=== PATIENT | male | born 1950 | race Caucasian/White ===

== ENCOUNTER → 2016-10-03 | Outpatient (CLI) | payer OTHER ==
[~2016-10-03] MED LIST: ASPIRIN ADULT L81 M2 PO; ATORVASTATIN CA80 M1 PO; CLOPIDOGREL75 MG PO; PRINIVIL10 MG PO
[2016-10-03 07:52] LABS: HEMATOCRIT 39.4 % (42.0-52.0); HEMOGLOBIN 13.5 g/dl (14.0-18.0); MEAN CELL VOLUME 93.4 fl (80.0-94.0); MEAN CORPUSCULAR HGB CONC 34.3 g/dl (33.0-37.0); MEAN PLATELET VOLUME 9.5 fl (9.6-12.3); RED BLOOD COUNT 4.22 10*6/uL (4.50-5.90); RED CELL DISTRI WIDTH 14.3 % (0-14.5); WHITE BLOOD COUNT 6.5 10*3/uL (4.8-10.8)
[2016-10-03 08:21] LABS: ALBUMIN 3.9 gm/dl (3.1-4.5); BILIRUBIN, TOTAL 0.4 mg/dl (0.2-1.0); BUN 7 mg/dl (7-24); CARBON DIOXIDE 30 mmol/L (21-32); CHLORIDE 100 mmol/L (98-107); CHOLESTEROL 113 mg/dL (<200); EST GLOM FILT AFRICAN AMERICAN > 60 ml/min; GLUCOSE 95 mg/dL (65-99); POTASSIUM 4.4 mmol/L (3.5-5.1); SGOT/AST 16 IU/L (3-35); SGPT/ALT 21 U/L (12-78); SODIUM 134 mmol/L (136-145); TOTAL PROTEIN 7.4 gm/dL (6.4-8.2); TRIGLYCERIDES 48 mg/dl (<150); VLDL CHOLESTEROL 10 mg/dL (6-40)
[2016-10-03 08:22] LABS: ALKALINE PHOSPHATASE 137 U/L (45-117); CPK 78 U/L (39-308); HDL CHOLESTEROL 76 mg/dl (40-60); LDL CHOLESTEROL 27 mg/dL (9-159)
== END | disposition home or self-care (01) ==
LOC: LAB 07:08
PROVIDERS: Family Medicine
DX: I10 Essential (primary) hypertension (principal); E78.00 Pure hypercholesterolemia, unspecified; E74.00 Glycogen storage disease, unspecified; F41.1 Generalized anxiety disorder; I63.9 Cerebral infarction, unspecified; R05 Cough

== ENCOUNTER 2019-10-22 16:40 | Inpatient (IN) | payer MEDICARE ==
[~2019-10-22] VITALS: Ht 175.3 cm; Wt 56.8 kg
[2019-10-22 16:52] VITALS: BP 183/91
[2019-10-22 17:34] LABS: BASO # 0.1 10*3/uL (0.0-0.1); BASO % 0.6 % (0.0-1.0); EOS # 0.3 10*3/uL (0.0-0.4); EOS % 2.9 % (1.0-4.0); HEMATOCRIT 40.8 % (42.0-52.0); LYMPH # 1.2 10*3/uL (1.3-4.4); MEAN CELL VOLUME 96.5 fl (80.0-94.0); MEAN CORPUSCULAR HGB 32.6 pg (27.0-31.0); MEAN CORPUSCULAR HGB CONC 33.8 g/dl (33.0-37.0); MEAN PLATELET VOLUME 9.1 fl (9.6-12.3); MONO # 0.7 10*3/uL (0.1-1.0); MONO % 6.8 % (3.0-9.0); NEUT # 7.9 10*3/uL (2.3-7.9); NEUT % 77.4 % (47.0-73.0); PLATELET COUNT AUTOMATED 318 10*3/uL (130-400); RED BLOOD COUNT 4.23 10*6/uL (4.50-5.90); RED CELL DISTRI WIDTH 13.4 % (0-14.5); WHITE BLOOD COUNT 10.3 10*3/uL (4.8-10.8)
[2019-10-22 17:39] LABS: ABG BASE EXCESS -0.4 mmol/L (-2.0-2.0); ARTERIAL BLOOD GAS PH 7.425 (7.35-7.45)
[2019-10-22 17:45] LABS: ACT PARTIAL THROMBO TIME 29.7 SECONDS (20.0-32.1)
[2019-10-22 17:51] LABS: ALBUMIN 3.4 gm/dl (3.1-4.5); BUN 13 mg/dl (7-24); CHLORIDE 102 mmol/L (98-107); CREATININE 0.77 mg/dL (0.70-1.30); LIPASE 73 U/L (73-393); POTASSIUM 4.1 mmol/L (3.5-5.1); SGPT/ALT 20 U/L (12-78); SODIUM 133 mmol/L (136-145); TOTAL PROTEIN 6.9 gm/dL (6.4-8.2)
[2019-10-22 17:55] LABS: ALKALINE PHOSPHATASE 124 U/L (45-117); SGOT/AST 13 IU/L (3-35)
[2019-10-22 17:57] LABS: TROPONIN I < 0.015 ng/ml (<0.045)
[2019-10-22 18:51] VITALS: BP 164/80
--- NOTE | 2019-10-22 19:04 | NUR ---
THE PATIENT IS AWAKE ALERT AND VOICES NO COMPLAINTS AT THIS TIME. I DID EXPLAIN TO HIM HIS FAMILY HAS CALLED. I EXPLAINED TO THE PATIENT THEY WILL BE CALLING BACK AND I CAN PUT THE CALL INTO HIM. ISAIAS MILLER RN.
[2019-10-22 19:05] LABS: BILIRUBIN NEGATIVE (NEGATIVE); BLOOD NEGATIVE (NEGATIVE); CLARITY SL CLOUDY (CLEAR); COLOR YELLOW (YELLOW); GLUCOSE NEGATIVE (NEGATIVE); KETONE NEGATIVE (NEGATIVE); LEUKO ESTERASE NEGATIVE (NEGATIVE); MUCOUS 1+; NITRITE NEGATIVE (NEGATIVE); PH 6.5 (5.0-9.0); UROBILINOGEN 0.2 E.U./dl (0.2-1.0)
[2019-10-22 19:30] VITALS: BP 160/91
[2019-10-22 22:00] VITALS: BP 178/90
--- NOTE | 2019-10-22 22:00 | NUR ---
A 69, admitted to , under the services of JUAREZ Carney DO with a diagnosis of ALTERED MENTAL STATUS. Chief complaint is CHANGE IN MENTAL STATUS. Patient arrived via wheel chair from ER. Monitor applied. Initial assessment completed. Vital signs taken and recorded. JUAREZ CARNEY DO notified of admission to the unit. Orders received. See assessment for past medical history, medications and allergies. Patient and/or family oriented to unit. [address] visitation policy reviewed. Clothing/patient valuable form completed. PATIENT STATED NAME, PLACE, AND DATE. NO SIGNS OF CONFUSION AT THIS TIME. PATIENT IS UNSTEADY ON FEET. ORIENTED TO ROOM AND CALL LIGHT. BED ALARMED EXPLAINED AND TURNED ON. ALL QUESTIONS ANSWERED. NO COMPLAINTS AT THIS TIME. WILL MONITOR. JUAN A DENIS
[2019-10-22] MEDS ORDERED: LOSARTAN POTASS50 M1 PO (22:16)
[2019-10-22] MEDS ORDERED: SERTRALINE HYDR50 MG PO (22:20)
[2019-10-22] MEDS ORDERED: B COMPLEX1 EACH PO (22:21)
[2019-10-22] MEDS ORDERED: B12 ACTIVE1000 MCG PO (22:22)
--- NOTE | 2019-10-22 22:30 | NUR ---
TALKED WITH THE PATIENTS DAUGHTER KAZ AND GAVE HER AN UPDATE ON [facility] PAATIENTS ADMISSION AND CONDITION PER THE PATIETNS REQUEST. ISAIAS MILLER RN.
--- NOTE | 2019-10-22 22:45 | NUR ---
NOTIFIED [facility] OF CONSULT
--- NOTE | 2019-10-22 23:29 | NUR ---
PATIENT REFUSED LIBRIUM. HE STATED HE DRINKS 6 BEERS A DAY. PATIENT STATED HE STOPPED DRINKING ALCOHOL IN THE PAST AND THEN STARTED AGAIN BECAUSE HE USED TO [place]. EXPLAINED REASON FOR LIBRIUM. PATIENT STILL REFUSED. I WENT OVER HIS PRN MEDICATION OPTIONS WITH HIM. PATIENT IS REQUESTING ONLY NICOTINE PATCH AT THIS TIME.
--- NOTE | 2019-10-22 23:30 | NUR ---
SPOKE WITH DR GRAVES REGARDING HIGH BLOOD PRESSURES. HE STATED HE WOULD PUT IN A ONE TIME DOSE OF PATIENT'S COZAR
[2019-10-23] VITALS (11 sets, daily range): BP systolic 70–190; BP diastolic 50–90
[2019-10-23 00:04] LABS: URINE AMPHETAMINES < 1000 (1000ng/ml); URINE BARBITURATES < 200 (200ng/ml); URINE BENZODIAZEPINES < 200 (200ng/ml); URINE CANNABINOIDS (THC) < 50 (50ng/ml); URINE COCAINE < 300 (300ng/ml); URINE METHADONE < 300 (300ng/ml); URINE OPIATES < 300 (300ng/ml)
[2019-10-23 00:11] LABS: URINE PHENCYCLIDINE < 25 (25ng/ml)
--- NOTE | 2019-10-23 01:37 | NUR ---
PATIENTS BLOOD PRESSURE IS STILL HIGH AT 182/90 WITH DOSE OF COZAR. PATIENT CURRENTLY STATED HE FEELS ITCHY "ALL OVER". HE HAS A NICOTINE PATCH ON. NOTIFIED DR GRAVES. HE STATED TO TAKE OFF THE NICOTINE PATCH TO SEE IF THAT HELPS, THAT HE WOULD ORDER SOMETHING FOR THE ITCHING AND ALSO SOMETHING FOR THE CONTINUED HIGH BLOOD PRESSURES. WILL CARRY OUT DOCTORS ORDERS.
--- NOTE | 2019-10-23 01:44 | NUR ---
PATIENT STATED HE DOES NOT WANT ME TO TAKE OFF HIS NICOTINE PATCH. HE STATED THAT HE ITCHES "ALL THE TIME" AND THAT HE HAS AN APPOINTMENT IN [place] ON THE TO SEE A CYBERATHLETE. PATIENT STATED HE USES A SPECIAL DETERGENT AT HOME AND THAT HE HAS BEEN ITCHY FOR MONTHS. HE HAS AGREED TO TAKE BENADRYL TO SEE IF IT HELPS.
--- NOTE | 2019-10-23 02:01 | NUR ---
BENADRYL GIVEN FOR COMPAINTS OF ITCHING. APRESOLINE 10MG GIVEN FOR HIGH BLOOD PRESSURE 182/90. WILL ASSESS EFFECTIVENESS OF MEDICATIONS.
--- NOTE | 2019-10-23 05:05 | NUR ---
APRESOLINE NOT EFFECTIVE. PATIENT'S BLOOD PRESSURE 188/88. NOTIFIED DR GRAVES. HE STATED HE WOULD LOOK AND SEE WHAT ELSE TO DO FOR THE PATIENT.
--- NOTE | 2019-10-23 05:10 | NUR ---
TYLENOL GIVEN PER PATIENT REQUEST FOR COMPLAINTS OF HEADACHE RATED 6/10. WILL ASSESS EFFECTIVENESS.
--- NOTE | 2019-10-23 05:53 | NUR ---
LABETOLOL 10MG IV ORDERED BY DR GRAVES AND ADMINISTERED TO PATIENT.
[2019-10-23 06:28] LABS: BASO # 0.1 10*3/uL (0.0-0.1); BASO % 0.8 % (0.0-1.0); EOS # 0.5 10*3/uL (0.0-0.4); EOS % 7.1 % (1.0-4.0); LYMPH # 1.7 10*3/uL (1.3-4.4); LYMPH % 23.3 % (27.0-41.0); MEAN CELL VOLUME 94.6 fl (80.0-94.0); MEAN CORPUSCULAR HGB 32.2 pg (27.0-31.0); MEAN PLATELET VOLUME 9.3 fl (9.6-12.3); MONO # 0.7 10*3/uL (0.1-1.0); MONO % 10.2 % (3.0-9.0); NEUT # 4.2 10*3/uL (2.3-7.9); NEUT % 58.3 % (47.0-73.0); PLATELET COUNT AUTOMATED 322 10*3/uL (130-400); RED BLOOD COUNT 4.23 10*6/uL (4.50-5.90); RED CELL DISTRI WIDTH 13.2 % (0-14.5); WHITE BLOOD COUNT 7.2 10*3/uL (4.8-10.8)
[2019-10-23 06:30] LABS: BUN 10 mg/dl (7-24); CHLORIDE 102 mmol/L (98-107); CHOLESTEROL 170 mg/dL (<200); CREATININE 0.59 mg/dL (0.70-1.30); HDL CHOLESTEROL 51 mg/dl (40-60); LDL CHOLESTEROL 101 mg/dL (9-159); POTASSIUM 3.6 mmol/L (3.5-5.1); SODIUM 132 mmol/L (136-145); TRIGLYCERIDES 92 mg/dl (<150); VLDL CHOLESTEROL 18 mg/dL (6-40)
--- NOTE | 2019-10-23 06:35 | NUR ---
WENT IN TO PATIENT'S ROOM TO RECHECK BLOOD PRESSURE AFTER LABETOLOL GIVEN. PATIENT'S BLOOD PRESSURE WAS 152/77 AND HEART RATE WAS 74 PER CONTINUOUS PROCESS TANNER ROTARY DRUM. HE STATED HE HAD TO GO TO THE BATHROOM. I ASSISTED HIM TO STAND NEAR THE SIDE OF HIS BED AND HANDED HIM HIS URINAL. HE THEN STATED HE FELT LIKE HE HAD TO HAVE A BOWEL MOVEMENT AND STARTED WALKING TO THE BATHROOM. I ASSISTED THE PATIENT INTO THE BATHROOM AND TOLD HIM I WAS GOING TO STAY NEARBY SINCE HE IS UNSTEADY WHEN WALKING. PATIENT THEN STARTED TO SLOUCH STANDING AND I ASKED HIM IF HE WAS OKAY. HE DID NOT ANSWER ME AND THEN LEANED UP AGAINST THE WALL. I ASKED THE PATIENT IF HE WAS OKAY AND SAID HIS NAME. THE PATIENT DID NOT RESPOND. HIS EYES THEN ROLLED UP AND HE STARTED TO GO DOWN. I ASSISTED THE PATIENT TO THE FLOOR AND YELLED FOR HELP. THE ICU NURSES CAME OUT TO HELP. PATIENT'S BLOOD PRESSURE WAS THEN 75/50 AT 0638 WITH A PULSE OF 55-60. A RAPID RESPONSE WAS CALLED. PATIENT WAS WEAK AND NEEDED ASSISTANCE INTO A WHEELCHAIR TO GET BACK INTO BED. ONCE IN BED LAYING DOWN THE PATIENT'S BLOOD PRESSURE AT 0645 WAS 124/65 WITH A PULSE OF 66. PATIENT STATED HE FELT "FINE". DR YOON ORDERED THE PATIENT TO HAVE A ONE TIME BAG OF NORMAL SALINE 1000ML GOING AT 100 ML/HR. BLOOD SUGAR WAS 134. PATIENT RESPONSIVE AND ALERT AND ORIENTED X 3. ANSWERING QUESTIONS APPROPRIATELY. FLUIDS RUNNING. CALL LIGHT WITHIN REACH. VITAL SIGNS STABLE. NO FURTHER COMPLAINTS. WILL CONTINUE TO MONITOR.
[2019-10-23 06:38] LABS: FREE T4 1.16 ng/dl (0.76-1.46)
--- NOTE | 2019-10-23 06:45 | NUR ---
RESPONDED TO RAPID RESPONSE WITH RT ALEX JENKINS. RAPID RESPONSE CLEARED AND EKG SOMPLETED
--- NOTE | 2019-10-23 07:06 | NUR ---
PATIENT RESTING IN BED QUIETLY. VITAL SIGNS STABLE. PATIENT STATED HE FELT FINE. BED CHANGED. IV FLUIDS RUNNING. NO COMPLAINTS AT THIS TIME. CALL LIGHT WITHIN REACH.
--- NOTE | 2019-10-23 07:30 | NUR ---
PT RESTING IN BED. VOICES NO CONCERNS AT THIS TIME. RESPS EASY AND NON LABORED. NO S/S OF DISTRESS NOTED. PT A LITTLE CONFUSED THIS MORNING-CORRECTS WITH RE-ORIENTATION. VSS. WHITE BOARD UPDATED. CALL LIGHT WITHIN REACH. BED ALARM ON.
--- NOTE | 2019-10-23 09:30 | NUR ---
Rough Rice Tender in to talk to patient. Patient states lives at home with friend. There are no steps in the home. Physician: jeffry meza Pharmacy: [facility] health services: none Patient's level of ADLs: INDEPENDENT Patient has working utilities: all working DME: none Follow-up physician's appointment after d/c: will be made by hospitalist nurse director upon discharge Does patient want to access PORTAL?: no Discharge plan discussed with patient, he states he lives at home with friend, he is independent in adls and ambulation, he states he will return home when medically stable and denies any home needs. BRADLEY RAMEY
--- NOTE | 2019-10-23 09:57 | NUR ---
ORTHOS COMPLETE. LAYING 169/73, SITTING 161/70, STANDING 160/74
--- NOTE | 2019-10-23 14:00 | NUR ---
PTS FAMILY DROPPED OFF BELONGINGS IN ER. RETRIEVED AND GAVE TO PT AT THIS TIME.
--- NOTE | 2019-10-23 18:29 | NUR ---
Patient resting quietly with no c/o discomfort. Respirations easy and regular. Vital signs stable. No overt distress. HISSOM,ELO
--- NOTE | 2019-10-23 21:04 | NUR ---
PATIENT'S DAUGHTER CALLED TO GET AN UPDATE. PASSWORD GIVEN TO ME. UPDATED HER AND ANSWERED ALL QUESTIONS. SHE STATED HER BROTHER WAS TO BE THE FIRST TO BE NOTIFIED IN AN EMERGENCY AND HIS NUMBER IS [phone], NAME IS MALVIN COOPER. HER NUMBER IS ON CHART WELL AND PATIENT'S LIVE IN GIRLFRIEND'S NUMBER IS ON CHART. NO FURTHER QUESTIONS.
--- NOTE | 2019-10-23 21:41 | NUR ---
PATIENT RESTING IN BED. HE IS A LITTLE BIT DROWSY BUT RESPONDS APPROPRIATELY AND ANSWERS ALL QUESTIONS. SPEECH NOT SLURRED. PATIENT STATED HE SLEPT GOOD TODAY AND WAS WARM. WILL CONTINUE TO MONITOR.
--- NOTE | 2019-10-23 21:54 | NUR ---
PATIENT'S MOM CALLED IN TO CHECK ON PATIENT. SHE STATED SHE HAD CALLED IN TO THE PATIENT'S ROOM BUT HE WAS QUIET ON THE PHONE AND SHE COULD NOT UNDERSTAND HIM WELL ENOUGH. I UPDATED HER ON THE PATIENT'S CONDITION AND LET HER KNOW HE WAS A LITTLE DROWSY BUT DOING WELL WITH GOOD STABLE VITAL SIGNS. NO FURTHER QUESTIONS.
[2019-10-24] VITALS: BP 122/79
[2019-10-24 01:52] VITALS: BP 126/68
--- NOTE | 2019-10-24 04:40 | NUR ---
24 HR chart check completed.
[2019-10-24 06:44] LABS: BUN 11 mg/dl (7-24); CHLORIDE 105 mmol/L (98-107); POTASSIUM 3.3 mmol/L (3.5-5.1); SODIUM 136 mmol/L (136-145)
[2019-10-24 06:45] LABS: CREATININE 0.68 mg/dL (0.70-1.30)
--- NOTE | 2019-10-24 07:30 | NUR ---
PT RESTING IN BED. VOICES NO CONCERNS AT THIS TIME. RESPS EASY AND NON LABORED. NO S/S OF DISTRESS NOTED. VSS. WHITE BOARD UPDATED. CALL LIGHT WITHIN REACH. BED ALARM ON.
[2019-10-24 08:00] VITALS: BP 144/80; BP 144/82
--- NOTE | 2019-10-24 08:17 | NUR ---
PHYSICAL THERAPY Screen received pt admitted from home with metabolic encephalopathy and to rule out CVA. 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 Pt may benefit from PT pending cognitive/medical status if below baseline level of function thank you. Zuri Edgar PT
--- NOTE | 2019-10-24 08:57 | NUR ---
SPOKE WITH DAUGHTER KAZ. SHE REQUESTED THAT THE DOCTOR CALL HER. SOURAV MARTINEZ CURRENTLY SPEAKING WITH DAUGHTER UPDATING HER. PATIENT IS RESTING QUIETLY IN BED. ALL MORNING MEDICATIONS TAKEN ALONG WITH POTASSIUM SUPPLEMENTATION. NO PROBLEM WITH SWALLOWING PILLS. PATIENT IS ANSWERING ALL QUESTIONS APPROPRIATELY BUT SEEMS TO HAVE A LITTLE BIT OF CONFUSION AT TIMES. CALL LIGHT WITHIN REACH. BED ALARM ON.
--- NOTE | 2019-10-24 09:00 | NUR ---
case managment visits with patient, he states he will return home when medically stable and denies any home needs
--- NOTE | 2019-10-24 09:18 | NUR ---
WEST MARTINEZ CALLED FAMILY TO UPDATE THEM ON PLAN OF CARE
--- NOTE | 2019-10-24 10:24 | NUR ---
Shift chart check completed.
[2019-10-24 12:00] VITALS: BP 137/67
--- NOTE | 2019-10-24 13:30 | NUR ---
Occupational Therapy evaluation completed on four with full evaluation to follow. Recommend occupational therapy per plan of care and SNF upon discharge. If refused, home with SN, OT,and PT with 08/01 supervision assist. Thank you for this referral. Alexia Littlejohn OTR/L
--- NOTE | 2019-10-24 14:47 | NUR ---
Physical Therapy Physical Therapy evaluation completed on the fourth floor with full evaluation to follow. Upon entering room pt lyingin bed had spilled his coffee all over him/bed. Talking on the phone, but had phone flipped so not speaking into actual phone piece asked pt if he realized speaking into phone the wrong way and said "oh really". Per notes pt does have orders for pysch consult. Please see full eval, recommend physical therapy per plan of care and SNF upon discharge. Thank you for this referral. Zuri Edgar PT
[2019-10-24 16:00] VITALS: BP 123/70
--- NOTE | 2019-10-24 16:15 | NUR ---
PT FOUND SITTING IN HALLWAY IN RECLINER USING FEET TO MOVE BACKWARDS. STATING HE HAS TO GET UP TO THE SECOND FLOOR TO GO WORK. RE-ORIENTED PATIENT AND ASSISTED HIM BACK TO HIS ROOM. STATES HE STILL WANTS TO SIT IN CHAIR AND HAVE A CUP OF COFFEE. WILL CONTINUE TO MONITOR. CALL LIGHT WITHIN REACH. BODY ALARM INTACT
--- NOTE | 2019-10-24 16:22 | NUR ---
PATIENTS FAMILY UPDATED ON PLAN OF CARE. QUESTIONS ANSWERED.
--- NOTE | 2019-10-24 16:36 | NUR ---
PT MOVED TO ROOM 409 TO BE CLOSER TO NURSES STATION
--- NOTE | 2019-10-24 19:21 | NUR ---
SITTING UP IN CHAIR WITH BODY ALARM ON. DROWSY BUT DID AWAKEND EASILY TO VOICE. PT. PLEASANT AT THIS TIME.
[2019-10-24 21:56] VITALS: BP 141/68
[2019-10-25] VITALS (8 sets, daily range): BP systolic 105–170; BP diastolic 62–86
--- NOTE | 2019-10-25 00:01 | NUR ---
24 HR chart check completed.
--- NOTE | 2019-10-25 02:58 | NUR ---
SLEEPING RESP. EASY AND REG. NO DISTRESS NOTED.
--- NOTE | 2019-10-25 07:55 | NUR ---
MORNING ASSESSMENT COMPLETE. NO SIGNS OF DISTRESS. MANUAL BP IS 168/78. APRESOLINE 5MG IV GIVEN FOR SYSTOLIC GREATER THAN 160.
--- NOTE | 2019-10-25 09:08 | NUR ---
BP 154/70. APRESOLINE EFFECTIVE.
--- NOTE | 2019-10-25 13:11 | NUR ---
APRESOLINE 5MG IV GIVEN FOR A SYSTOLIC BP OF 170.
--- NOTE | 2019-10-25 13:41 | NUR ---
DAUGHTER CALLED WANTING ME TO TAKE PATIENT OFF OF LIBRIUM. I EXPLAINNED TO HIS DAUGHTER THAT THE DECISION WOULD BE MADE BY THE PATIENT AND HIS PHYSICIAN BUT THAT I WOULD TELL THE PHYSICIAN OF HER CONCERN.
--- NOTE | 2019-10-25 13:46 | NUR ---
SPOKE WITH DR GROSSMAN AND TOLD HER OF DAUGHTERS CONCERNS ABOUT THE LIBRIUM.
--- NOTE | 2019-10-25 14:50 | NUR ---
BP IS 130/62 MANUAL. APRESOLINE EFFECTIVE. ROUTINE ZESTRIL GIVEN AT THIS TIME.
--- NOTE | 2019-10-25 17:30 | NUR ---
PT RESTING IN BED. EYES CLOSED. WILL MONITOR
--- NOTE | 2019-10-25 19:56 | NUR ---
ASSESSED PATIENT. PATIENT ALERT AND COOPERATIVE. ON PHONE WITH FAMILY MEMBER. NO EEDS AT THIS TIME. CALL LIGHT WITHIN REACH, WILL MONITOR
--- NOTE | 2019-10-25 23:29 | NUR ---
PATIENT SLEEPING, NO DISTRESS NOTED. BED ALARM INTACT. CALL LIGHT WITHIN REACH, WILL MONITOR
[2019-10-26] VITALS: BP 115/66
--- NOTE | 2019-10-26 01:49 | NUR ---
24 HR chart check completed.
--- NOTE | 2019-10-26 02:00 | NUR ---
PATIENT WANTED TO GET UP AND STRETCH LEGS. UNSTEADY ON FEET. PATIENT NOW BACK IN BED, BED ALARM INTACT. CALL LIGHT WITHIN REACH, WILL MONITOR
[2019-10-26 06:20] LABS: BASO # 0.1 10*3/uL (0.0-0.1); BASO % 0.8 % (0.0-1.0); EOS # 0.5 10*3/uL (0.0-0.4); EOS % 6.3 % (1.0-4.0); HEMATOCRIT 37.5 % (42.0-52.0); LYMPH # 1.1 10*3/uL (1.3-4.4); LYMPH % 14.5 % (27.0-41.0); MEAN CELL VOLUME 95.9 fl (80.0-94.0); MEAN CORPUSCULAR HGB 32.5 pg (27.0-31.0); MEAN CORPUSCULAR HGB CONC 33.9 g/dl (33.0-37.0); MEAN PLATELET VOLUME 9.5 fl (9.6-12.3); MONO # 0.9 10*3/uL (0.1-1.0); MONO % 11.6 % (3.0-9.0); NEUT # 5.1 10*3/uL (2.3-7.9); NEUT % 66.4 % (47.0-73.0); PLATELET COUNT AUTOMATED 297 10*3/uL (130-400); RED BLOOD COUNT 3.91 10*6/uL (4.50-5.90); RED CELL DISTRI WIDTH 13.9 % (0-14.5); WHITE BLOOD COUNT 7.7 10*3/uL (4.8-10.8)
[2019-10-26 06:43] LABS: CREATININE 0.71 mg/dL (0.70-1.30)
[2019-10-26 08:00] VITALS: BP 112/70
--- NOTE | 2019-10-26 08:26 | NUR ---
PT RESTING IN BED/ NO DISTRESS NOTED. WILL MONITOR
[2019-10-26] MEDS ORDERED: VITAMIN D350 MC2 PO (10:38)
[2019-10-26] MEDS ORDERED: NORVASC5 MG PO (10:38)
[2019-10-26 12:00] VITALS: BP 138/54
--- NOTE | 2019-10-26 12:30 | NUR ---
SPOKE WITH PT AMBREEN PARIKH AND DC ISTRUCTIONS GIVEN
--- NOTE | 2019-10-26 13:30 | NUR ---
Discharge instructions reviewed with patient/family. Patient receptive and verbalizes understanding. Follow-up care arranged. Written instructions given to patient/family. NACHO ZIMMERMAN
== END 2019-10-26 13:30 | disposition home or self-care (01) | DRG 304 ==
LOC: ED 16:40 → 4E 19:48 → EDHOLD 19:48 → 4E 21:15
PROVIDERS: Emergency Medicine; Internal Medicine; ADMIT Internal Medicine
DX: I16.1 Hypertensive emergency (principal); G93.41 Metabolic encephalopathy; E87.1 Hypo-osmolality and hyponatremia; I95.9 Hypotension, unspecified; R55 Syncope and collapse; D53.9 Nutritional anemia, unspecified; I10 Essential (primary) hypertension; J43.9 Emphysema, unspecified; F41.9 Anxiety disorder, unspecified; G47.00 Insomnia, unspecified; F32.9 Major depressive disorder, single episode, unspecified; I34.0 Nonrheumatic mitral (valve) insufficiency; R73.9 Hyperglycemia, unspecified; E83.41 Hypermagnesemia; R74.8 Abnormal levels of other serum enzymes; F17.210 Nicotine dependence, cigarettes, uncomplicated; Z71.6 Tobacco abuse counseling; Z86.73 Personal history of transient ischemic attack (TIA), and cerebral infarction without residual deficits; Z82.3 Family history of stroke; Z80.42 Family history of malignant neoplasm of prostate; Z82.49 Family history of ischemic heart disease and other diseases of the circulatory system; Z79.899 Other long term (current) drug therapy; Z79.82 Long term (current) use of aspirin; Z79.02 Long term (current) use of antithrombotics/antiplatelets

== ENCOUNTER → 2021-05-24 | Outpatient (CLI) | payer OTHER ==
[~2021-05-24] MED LIST changes: +B COMPLEX1 EACH PO; +B12 ACTIVE1000 MCG PO; +LOSARTAN POTASS50 M1 PO; +NORVASC5 MG PO; +SERTRALINE HYDR50 MG PO; +VITAMIN D350 MC2 PO
[2021-05-24 10:02] LABS: BUN 11 mg/dl (7-24); CREATININE 0.85 mg/dL (0.70-1.30)
== END | disposition home or self-care (01) ==
LOC: LAB 09:30 → CT 10:00
PROVIDERS: ATTEND Internal Medicine Critical Care Medicine
DX: Z01.812 Encounter for preprocedural laboratory examination (principal); J43.9 Emphysema, unspecified; J40 Bronchitis, not specified as acute or chronic; J45.50 Severe persistent asthma, uncomplicated; R22.2 Localized swelling, mass and lump, trunk; Z68.1 Body mass index [BMI] 19.9 or less, adult; Z87.891 Personal history of nicotine dependence

== ENCOUNTER → 2021-12-09 | Outpatient (CLI) | payer OTHER | END | disposition home or self-care (01) | LOC: CT 11:45 | PROVIDERS: ATTEND Internal Medicine Critical Care Medicine | DX: J43.9 Emphysema, unspecified (principal); J47.9 Bronchiectasis, uncomplicated; I25.10 Atherosclerotic heart disease of native coronary artery without angina pectoris; J45.50 Severe persistent asthma, uncomplicated; J92.9 Pleural plaque without asbestos; Z68.1 Body mass index [BMI] 19.9 or less, adult; R91.8 Other nonspecific abnormal finding of lung field ==

== ENCOUNTER → 2023-03-19 | Outpatient (CLI) | payer OTHER | END | disposition home or self-care (01) | LOC: CT 13:00 | PROVIDERS: ATTEND Family Medicine | DX: J43.9 Emphysema, unspecified (principal); R91.8 Other nonspecific abnormal finding of lung field; F17.210 Nicotine dependence, cigarettes, uncomplicated ==

== ENCOUNTER → 2023-07-13 | Outpatient (CLI) | payer OTHER ==
[2023-07-13 13:09] LABS: HEMATOCRIT 40.7 % (42.0-52.0); MEAN CORPUSCULAR HGB 31.6 pg (27.0-31.0); MEAN CORPUSCULAR HGB CONC 31.9 g/dl (33.0-37.0); MEAN PLATELET VOLUME 9.4 fl (9.6-12.3); RED BLOOD COUNT 4.11 10*6/uL (4.50-5.90); RED CELL DISTRI WIDTH 13.3 % (0-14.5); WHITE BLOOD COUNT 10.2 10*3/uL (4.8-10.8)
[2023-07-13 13:33] LABS: ALKALINE PHOSPHATASE 89 U/L (46-116); BUN 20 mg/dl (9-23); CHLORIDE 101 mmol/L (98-107); LIPASE 33 U/L (12-53); POTASSIUM 3.6 mmol/L (3.4-5.1); SGPT/ALT 17 U/L (5-49); TOTAL PROTEIN 6.7 gm/dL (6.0-8.0)
== END | disposition home or self-care (01) ==
LOC: LAB 12:37
PROVIDERS: ATTEND Family Medicine
DX: F10.20 Alcohol dependence, uncomplicated (principal); I10 Essential (primary) hypertension; R55 Syncope and collapse; D64.9 Anemia, unspecified; E55.9 Vitamin D deficiency, unspecified

== ENCOUNTER → 2023-07-24 | Outpatient (CLI) | payer OTHER | LOC: CARD 14:00 | PROVIDERS: ATTEND Family Medicine | DX: I51.7 Cardiomegaly (principal) ==

== ENCOUNTER → 2025-03-02 | Outpatient (CLI) | payer OTHER | LOC: CARD 08:08 | PROVIDERS: ATTEND Family Medicine | DX: J43.9 Emphysema, unspecified (principal); R91.1 Solitary pulmonary nodule; R01.2 Other cardiac sounds; J98.4 Other disorders of lung; J98.09 Other diseases of bronchus, not elsewhere classified ==